=== PATIENT | male | born 1970 | race Caucasian/White ===

== ENCOUNTER 2019-10-25 11:12 | Emergency (ER) | payer MEDICAID, OTHER ==
[~2019-10-25] VITALS: Ht 180.3 cm; Wt 91.0 kg
[2019-10-25 11:26] VITALS: BP 162/92
[2019-10-25] MEDS ORDERED: LIDOcaine/epinephrine TOPICAL 3 ML syringe TOP ONE ×2 (12:30→12:35)
[2019-10-25] MEDS ORDERED: sulfamethoxazole/trimethoprim DS (800/160mg) tablet PO ONE (13:30)
[2019-10-25] MEDS ORDERED: cephalexin 250mg capsule PO ONE (13:30)
[2019-10-25] MEDS ORDERED: CEPH-572 PO (13:36)
[2019-10-25] MEDS ORDERED: BACDS PO (13:36)
== END 2019-10-25 14:02 | disposition home or self-care (01) ==
LOC: ER 11:13
DX: L02.213 Cutaneous abscess of chest wall (principal); L03.313 Cellulitis of chest wall; F17.200 Nicotine dependence, unspecified, uncomplicated; Z88.0 Allergy status to penicillin; Z79.899 Other long term (current) drug therapy
CPT/HCPCS: 10060; 99284

== ENCOUNTER 2019-10-27 13:52 | Emergency (ER) | payer MEDICAID, OTHER ==
[~2019-10-27] VITALS: Ht 180.3 cm; Wt 110.0 kg
[~2019-10-27 13:52] MED LIST: BACDS PO; CEPH-572 PO
[2019-10-27 13:58] VITALS: BP 149/91
== END 2019-10-27 14:23 | disposition home or self-care (01) ==
LOC: ER 13:53
DX: L02.213 Cutaneous abscess of chest wall (principal); L03.313 Cellulitis of chest wall; Z88.0 Allergy status to penicillin
CPT/HCPCS: 99281

== ENCOUNTER 2020-03-16 10:47 | Emergency (ER) | payer MEDICAID, OTHER ==
[~2020-03-16] VITALS: Ht 180.3 cm; Wt 98.0 kg
[2020-03-16] MEDS ORDERED: ketorolac trometh. 30mg/ml inj. IM ONE (11:20)
--- NOTE | 2020-03-16 12:23 | NUR ---
Pt reported relief of pain now down to 2/10.
[2020-03-16] MEDS ORDERED: CYCL-1 PO (12:51)
[2020-03-16 12:57] VITALS: BP 141/72
== END 2020-03-16 13:02 | disposition home or self-care (01) ==
LOC: ER 10:48
DX: S16.1XXA Strain of muscle, fascia and tendon at neck level, initial encounter (principal); S09.90XA Unspecified injury of head, initial encounter; Z88.0 Allergy status to penicillin; X58.XXXA Exposure to other specified factors, initial encounter; Y93.89 Activity, other specified; Y92.89 Other specified places as the place of occurrence of the external cause; Y99.8 Other external cause status
CPT/HCPCS: 70450; 72040; 72125; 96372; 99285; J1885